=== PATIENT | female | born 1995 | race Caucasian/White ===

== ENCOUNTER 2021-10-28 22:12 | Emergency (ER) | payer MEDICAID ==
[~2021-10-28 22:12] MED LIST: ANTIBIOTIC; ETON68IM3 SQ
== END 2021-10-28 23:29 | disposition left against medical advice (07) ==
LOC: EMS 22:13
DX: F29 Unspecified psychosis not due to a substance or known physiological condition (principal); F17.210 Nicotine dependence, cigarettes, uncomplicated; F12.90 Cannabis use, unspecified, uncomplicated; Z86.59 Personal history of other mental and behavioral disorders; Z87.440 Personal history of urinary (tract) infections
CPT/HCPCS: 99283; Z7502